=== PATIENT | female | born 1975 | race Caucasian/White ===

== ENCOUNTER → 2016-10-05 | Outpatient (CLI) | payer BC ==
--- NOTE | 2016-10-05 08:36 | MM ---
Reason for exam: clinical finding. Last mammogram was performed 10 months ago. History: Took hormonal contraceptives for 9 months. Indicated problem(s): pain in the left breast. Physical Findings: Nurse did not find any significant physical abnormalities on exam. MG Diagnostic Mammo LT w CAD XCCL, MLO, CC, ML, and spot compression MLO view(s) were taken of the left breast. Prior study comparison: November 30, 2015, bilateral MG 3d screening mammo w/cad. June 12, 2011, bilateral digital screening mammo w/CAD. The breast tissue is heterogeneously dense. This may lower the sensitivity of mammography. There is no discrete abnormality including area of concern. These results were verbally communicated with the patient and result sheet given to the patient on 10/05/16. ASSESSMENT: Benign, BI-RAD 2 RECOMMENDATION: Return to routine screening mammogram schedule for both breasts. Back on schedule. Manage patient on a clinical basis.
== END | disposition home or self-care (01) ==
LOC: RADMAMWWP 07:07
PROVIDERS: ATTEND Internal Medicine
DX: N63 Unspecified lump in breast (principal)

== ENCOUNTER → 2017-02-28 | Outpatient (CLI) | payer BC ==
--- NOTE | 2017-02-28 11:16 | MM ---
Reason for exam: screening (asymptomatic). Last mammogram was performed 5 months ago. History: Took hormonal contraceptives for 9 months. Physical Findings: A clinical breast exam by your physician is recommended on an annual basis and results should be correlated with mammographic findings. MG Screening Mammo w CAD Bilateral CC and MLO view(s) were taken. Prior study comparison: October 05, 2016, left breast MG diagnostic mammo LT w CAD. November 30, 2015, bilateral MG 3d screening mammo w/cad. June 12, 2011, bilateral digital screening mammo w/CAD. The breast tissue is extremely dense which could obscure a lesion on mammography. There is no discrete abnormality. ASSESSMENT: Negative, BI-RAD 1 RECOMMENDATION: Routine screening mammogram of both breasts in 1 year.
== END | disposition home or self-care (01) ==
LOC: RADMAMWWP 08:22
PROVIDERS: ATTEND Obstetrics & Gynecology
DX: Z12.31 Encounter for screening mammogram for malignant neoplasm of breast (principal)

== ENCOUNTER → 2017-11-05 | Outpatient (CLI) | payer BC ==
--- NOTE | 2017-11-06 08:15 | USB ---
Reason for exam: additional evaluation requested from abnormal screening. History: Took hormonal contraceptives for 9 months. Physical Findings: Nurse Summary: Patient complains of left breast pain x 1 year intermittently (nurse chad) US Breast LT Left breast ultrasound includes all four quadrants, the retroareolar region and axilla. Finding demonstrates a 0.5 x 0.4 x 0.3cm oval, cystic lesion at 4 o'clock and a 1.8 x 1.9 x 0.6cm oval, cystic lesion at the posterior nipple. These results were verbally communicated with the patient and result sheet given to the patient on 11/05/17. ASSESSMENT: Benign, BI-RAD 2 RECOMMENDATION: Return to routine screening mammogram schedule for both breasts. Back on schedule for February 2018. Manage on a clinical basis with regard to pain.
== END | disposition home or self-care (01) ==
LOC: RADUSWWP 14:13
PROVIDERS: ATTEND Obstetrics & Gynecology
DX: N64.4 Mastodynia (principal)

== ENCOUNTER → 2018-05-29 | Outpatient (CLI) | payer BC ==
--- NOTE | 2018-05-30 10:21 | MM ---
Reason for exam: screening (asymptomatic). Last mammogram was performed 1 year and 3 months ago. History: Took hormonal contraceptives for 9 months. Physical Findings: A clinical breast exam by your physician is recommended on an annual basis and results should be correlated with mammographic findings. MG Screening Mammo w CAD Bilateral CC and MLO view(s) were taken. Prior study comparison: February 28, 2017, bilateral MG screening mammo w CAD. October 05, 2016, left breast MG diagnostic mammo LT w CAD. The breast tissue is heterogeneously dense. This may lower the sensitivity of mammography. There is no discrete abnormality. ASSESSMENT: Negative, BI-RAD 1 RECOMMENDATION: Routine screening mammogram of both breasts in 1 year.
== END | disposition home or self-care (01) ==
LOC: RADMAMWWP 09:26
PROVIDERS: ATTEND Obstetrics & Gynecology
DX: Z12.31 Encounter for screening mammogram for malignant neoplasm of breast (principal)
CPT/HCPCS: 77067

== ENCOUNTER → 2019-07-02 | Outpatient (CLI) | payer BC ==
--- NOTE | 2019-07-02 11:57 | MM ---
Reason for exam: screening (asymptomatic). Last mammogram was performed 1 year and 1 month ago. History: Took hormonal contraceptives for 9 months. Physical Findings: A clinical breast exam by your physician is recommended on an annual basis and results should be correlated with mammographic findings. MG 3D Screening Mammo W/Cad Bilateral CC and MLO view(s) were taken. Prior study comparison: May 29, 2018, bilateral MG screening mammo w CAD. February 28, 2017, bilateral MG screening mammo w CAD. The breast tissue is heterogeneously dense. This may lower the sensitivity of mammography. There is no discrete abnormality. ASSESSMENT: Negative, BI-RAD 1 RECOMMENDATION: Routine screening mammogram of both breasts in 1 year.
== END | disposition home or self-care (01) ==
LOC: RADMAMWWP 08:22
PROVIDERS: ATTEND Obstetrics & Gynecology
DX: Z12.31 Encounter for screening mammogram for malignant neoplasm of breast (principal)
CPT/HCPCS: 77063; 77067

== ENCOUNTER → 2020-10-14 | Outpatient (CLI) | payer BC ==
--- NOTE | 2020-10-17 09:26 | MM ---
Reason for exam: screening (asymptomatic). Last mammogram was performed 1 year and 3 months ago. History: Took hormonal contraceptives for 9 months. Physical Findings: A clinical breast exam by your physician is recommended on an annual basis and results should be correlated with mammographic findings. MG 3D Screening Mammo W/Cad Bilateral CC and MLO view(s) were taken. Prior study comparison: July 02, 2019, bilateral MG 3d screening mammo w/cad. May 29, 2018, bilateral MG screening mammo w CAD. The breast tissue is heterogeneously dense. This may lower the sensitivity of mammography. There is no discrete abnormality. No significant changes when compared with prior studies. ASSESSMENT: Negative, BI-RAD 1 RECOMMENDATION: Routine screening mammogram of both breasts in 1 year.
== END | disposition home or self-care (01) ==
LOC: RADMAMWWP 08:21
PROVIDERS: ATTEND Obstetrics & Gynecology
DX: Z12.31 Encounter for screening mammogram for malignant neoplasm of breast (principal)
CPT/HCPCS: 77063; 77067

== ENCOUNTER → 2021-03-31 | Outpatient (CLI) | payer BC ==
[2021-03-31 11:36] VITALS: BP 139/87; PULSE 78; RESP 14; TEMP 98.2
--- NOTE | 2021-03-31 11:59 | P.GSHP ---
History of Present Illness H&P Date: 03/31/21 Chief Complaint: nipple discharge Tammy is a 45 year old white female seen in consultation for Dr. Egan regarding left nipple discharge. She states this has been for about 8 weeks. It only occurs if it is expressed. She had a bilateral screening mammogram on 120 221 which was benign BIRADS 1. She does not complain of any new lumps masses or nodules of concern in either breast. She has no history of any recent trauma or infection in the breast. The discharge is brown in color. It is never been bright red. It seems to come from one isolated duct. Her periods are regular. The discharge is not related to her menstrual cycle. caffeine: one drink/day nicotine: none chocolate: occasional; she notices that if she eats too much that she has fullness and discomfort in her breast Family history: grandfather maternal: colon cancer Hormonal history: Menarche: 12 , breast fed: yes, age at first : 22 Periods are regular, last menstrual period was start any time Hormones: Negative control pills: less than a year as a teenager Surgical history: 5 hernia surgeries Plastic surgery on her nose Medical history: Negative Social history: Nicotine: Negative Alcohol: Rare Drugs: Negative - Constitutional Constitutional: Denies chills, Denies fever - EENT Eyes: denies blurred vision, denies pain Ears: deny: decreased hearing, tinnitus Ears, nose, mouth and throat: Denies headache, Denies sore throat - Breasts Breasts: bilateral: as per HPI - Cardiovascular Cardiovascular: Denies chest pain, Denies shortness of breath - Respiratory Respiratory: Denies cough, Denies 7 - Gastrointestinal Gastrointestinal: Denies abdominal pain, Denies diarrhea, Denies nausea, Denies vomiting - Genitourinary (Female) Genitourinary: Denies dysuria, Denies hematuria - Menstruation Menstruation: Reports as per HPI, Reports period normal - Musculoskeletal Musculoskeletal: Denies myalgias - Integumentary Integumentary: Denies pruritus, Denies rash - Neurological Neurological: Denies numbness, Denies weakness - Psychiatric Psychiatric: Denies anxiety, Denies depression - Endocrine Endocrine: Denies fatigue, Denies weight change - Hematologic/Lymphatic Comment: none - Allergic/Immunologic Allergic/Immunologic: Reports as per HPI Past Medical History Past Medical History: No Reported History History of Any Multi-Drug Resistant Organisms: None Reported Past Surgical History: Hernia Repair Additional Past Surgical History / Comment(s): hernia repair x5; broken nose at age 9 with reconstruction surgery; Past Anesthesia/Blood Transfusion Reactions: No Reported Reaction Past Psychological History: Anxiety Smoking Status: Never smoker Past Alcohol Use History: Rare Past Drug Use History: None Reported Medications and Allergies Home Medications Medication Instructions Recorded Confirmed Type Calcium/Magnesium/Zinc 1 each PO HS 03/31/21 03/31/21 History [Lvviyjb-Otsmexqwe-Bmxn Tablet] Multivitamin [Multivitamins Adult 1 each PO QAM 03/31/21 03/31/21 History Gummies] Psyllium Husk (with Sugar) 0 gm PO DAILY PRN 03/31/21 03/31/21 History [Metamucil Powder] Allergies Allergy/AdvReac Type Severity Reaction Status Date / Time No Known Allergies Allergy Unverified 03/31/21 11:26 Surgical - Exam Vital Signs Temp Pulse Resp BP Pulse Ox 98.2 F 78 14 139/87 98 03/31/21 11:28 03/31/21 11:28 03/31/21 11:28 03/31/21 11:28 03/31/21 11:28 BMI 28.3 - General well developed, well nourished, no distress - Eyes normal ocular movement - ENT no hearing loss, no congestion - Neck no masses, trachea midline - Respiratory normal respiratory effort, clear to auscultation - Cardiovascular Rhythm: regular Heart Sounds: normal: S1, S2 - Abdomen Abdomen: soft, non tender, no guarding, no rigid, no rebound - Integumentary normal turgor - Neurologic no disoriented, no combative - Musculoskeletal normal gait - Psychiatric oriented to time, oriented to person, oriented to place, speech is normal, memory intact breast exam: BRA: 38B inspection: Bilateral grade 2 ptosis Palpation: Right breast: Multi-positional exam fibrocystic changes no dominant masses or nodules of concern Right axilla: No adenopathy of concern Left breast: Multi-positional exam fibrocystic changes, no dominant masses or nodules of concern nipple discharge noted nipple area seems to be isolated to one duct; guaiac study was done and this was positive Left axilla: No adenopathy of concern Results Bilateral mammogram results reviewed from Assessment and Plan Assessment: Impression: 1. Fibrocystic breast changes 2. Bloody nipple discharge left breast 3. Recent bilateral mammogram benign BIRADS 1 Plan: 1. Ultrasound left breast 2. Duct exploration left breast if ultrasound shows an abnormality would do ultrasound localization if not duct exploration based on bloody discharge Risk and benefits of the procedure discussed with the patient. She understands and wishes to proceed. Risk include but are not limited to bleeding, infection, reaction to the anesthetic. CC: Dr. Egan
== END | disposition home or self-care (01) ==
LOC: WWCWWP 10:56
PROVIDERS: ATTEND Surgery
DX: Z53.9 Procedure and treatment not carried out, unspecified reason (principal)

== ENCOUNTER → 2021-04-04 | Outpatient (CLI) | payer BC ==
--- NOTE | 2021-04-04 10:24 | USB ---
EXAMINATION TYPE: US breast complete LT DATE OF EXAM: 04/04/2021 COMPARISON: 10/14/2020 CLINICAL HISTORY: N64.52 BREAST DISCHARGE. Findings: All 4 quadrants and the retroareolar left breast and left axilla were scanned with ultrasound. 2 incidental simple cysts are present at 3:00. In the retroareolar left breast at 3:00, there is a dilated duct containing a 0.4 x 0.3 cm intraducta l mass and ultrasound-guided biopsy is recommended. IMPRESSION: Ultrasound-guided biopsy is recommended for the intraductal mass in the retroareolar left breast at 3 :00 within a dilated duct. BI-RADS 4, suspicious.
== END | disposition home or self-care (01) ==
LOC: RADUSWWP 09:34
PROVIDERS: ATTEND Surgery
DX: N63.42 Unspecified lump in left breast, subareolar (principal)

== ENCOUNTER → 2021-05-04 | Day surgery (SDC) | payer BC ==
[2021-05-04 09:52] VITALS: RESP 12
[2021-05-04 11:48] VITALS: BP 151/84; PULSE 86; TEMP 98.7
--- NOTE | 2021-05-04 12:48 | USB ---
EXAMINATION TYPE: US biopsy breast VAD LT DATE OF EXAM: 05/04/2021 CLINICAL HISTORY: 45-year-old female N63. lump/mass. TECHNIQUE: Ultrasound guided core biopsy of 3:00 subareolar left breast. COMPARISON: 04/04/2021 FINDINGS: The procedure of ultrasound guided core biopsy was explained to the patient. Benefits, alt ernatives, and risks were discussed. An informed consent was then obtained. The patient was placed in supine positioning for imaging and for the procedure. The overlying skin w as prepped and draped in usual sterile fashion. Lidocaine was used as anesthetic into the skin and s ubcutaneous tissue up to area of concern in the 3:00 subareolar left breast The 7 mm ovoid hypoechoic circumscribed nodule is redemonstrated in the 3:00 subareolar region. The p revious associated ductal distention has resolved. Intraductal papilloma is possible. This is targete d for biopsy. Under ultrasound guidance, a 13-gauge vacuum-assisted mammotome Elite biopsy gun was used to obtain 3 core samples. Following this, a wing clip was left in lesion. The patient tolerated the procedure well. There was bleeding following the biopsy and prolonged pressure was applied by nursing. Hemostasis was successfully obtained. The patient will return for postbiopsy mammogram at a later date. The patient was kept in the radiology department for short stay after the procedure and then discharg ed home in stable condition. IMPRESSION: Successful, uncomplicated ultrasound guided core biopsy of 7 mm small oval mass 3:00 subareolar left breast previously noted to be located within a duct, possible intraductal papilloma. Note that the pa tient will return at a later date for postbiopsy mammogram. Full pathology results to follow.
== END ==
LOC: RADUSWWP 09:27
PROVIDERS: ATTEND Surgery
DX: N63.25 Unspecified lump in the left breast, overlapping quadrants (principal)
CPT/HCPCS: 19083; A4648; J2001

== ENCOUNTER → 2021-05-05 | Outpatient (CLI) | payer BC ==
--- NOTE | 2021-05-08 08:05 | MM ---
Reason for exam: additional evaluation requested from abnormal screening. Last mammogram was performed 7 months ago. History: Took hormonal contraceptives for 9 months. MG Diagnostic Mammo LT Wo CAD CC and LM view(s) were taken of the left breast. Prior study comparison: April 04, 2021, left breast US breast LT. October 14, 2020, bilateral MG 3d screening mammo w/cad. July 02, 2019, bilateral MG 3d screening mammo w/cad. The breast tissue is heterogeneously dense. This may lower the sensitivity of mammography. No significant hematoma. Wing clip in the subareolar region. Patient returned for post biopsy mammogram a day later due to initial bleeding. ASSESSMENT: Post procedure mammogram for marker placement RECOMMENDATION: Surgical consultation of the left breast.
== END | disposition home or self-care (01) ==
LOC: RADMAMWWP 07:56
PROVIDERS: ATTEND Surgery
DX: R92.8 Other abnormal and inconclusive findings on diagnostic imaging of breast (principal)
CPT/HCPCS: 77065

== ENCOUNTER → 2021-06-01 | Outpatient (CLI) | payer BC ==
--- NOTE | 2021-06-01 13:25 | P.PN ---
Progress Note - Text Progress Note Date: 06/01/21 Tammy [place] called [place] [id number]. Pathology revealed an intraductal papilloma. Additionally this was reviewed with Dr. Fields in the area of concern was identified. It is felt that this is the reason for her bloody nipple discharge. She is going to have needle localization and duct exploration/excision performed. However she recently was diagnosed with Covid and therefore the surgery was delayed for 7 weeks from the time of her diagnosis. She understands this will be seen in late June in the surgery will be in July. She was not vaccinated.
== END | disposition home or self-care (01) ==
LOC: WWCWWP 13:36
PROVIDERS: ATTEND Surgery
DX: Z53.9 Procedure and treatment not carried out, unspecified reason (principal)

== ENCOUNTER → 2022-01-29 | Outpatient (CLI) | payer BC ==
--- NOTE | 2022-01-29 09:20 | MM ---
Reason for exam: additional evaluation requested from prior study. Last mammogram was performed 9 months ago. History: Patient has history of high-risk lesion on a previous biopsy at age 45. High risk US biopsy breast VAD LT of the left breast, May 04, 2021. Took hormonal contraceptives for 9 months. Physical Findings: A clinical breast exam by your physician is recommended on an annual basis and results should be correlated with mammographic findings. MG 3D Diag Mammo W/Cad USHA Bilateral CC and MLO view(s) were taken. Prior study comparison: May 05, 2021, left breast MG diagnostic mammo LT wo CAD. October 14, 2020, bilateral MG 3d screening mammo w/cad. The breast tissue is heterogeneously dense. This may lower the sensitivity of mammography. Previous mammotome biopsy in the left breast. There is no discrete abnormality. Results were given to the patient verbally at the time of the exam. ASSESSMENT: Benign, BI-RAD 2 RECOMMENDATION: Routine screening mammogram of both breasts in 1 year.
--- NOTE | 2022-01-29 09:22 | USB ---
Reason for exam: follow-up at short interval from prior study. History: Patient has history of high-risk lesion on a previous biopsy at age 45. High risk US biopsy breast VAD LT of the left breast, May 04, 2021. Took hormonal contraceptives for 9 months. Physical Findings: A clinical breast exam by your physician is recommended on an annual basis and results should be correlated with mammographic findings. US Breast Limited LT Left limited breast ultrasound including focal area of concern, retroareolar and axilla demonstrates a 0.8 x 0.5 x 0.8cm oval, cystic, mixed lesion at 3 o'clock, 3cm from nipple, benign thin walled cyst, stable. Results were given to the patient verbally at the time of the exam. ASSESSMENT: Benign, BI-RAD 2 RECOMMENDATION: Routine screening mammogram of both breasts in 1 year.
== END | disposition home or self-care (01) ==
LOC: RADMAMWWP 07:52
PROVIDERS: ATTEND Surgery
DX: D48.62 Neoplasm of uncertain behavior of left breast (principal)
CPT/HCPCS: 77062; 77066

== ENCOUNTER → 2023-03-05 | Outpatient (CLI) | payer BC ==
--- NOTE | 2023-03-06 08:56 | MM ---
Reason for Exam: Screening (asymptomatic). Last mammogram was performed 1 year(s) and 1 month(s) ago. Patient History: Menarche at age 12. First Full-Term at age 22. Patient has history of breast feeding. Hormonal Contraceptives for 9 months. 05/04/2021, High risk Core Biopsy on the left side. Last menstrual period: 02/12/2023 Risk Values: Tish 5 year model risk: 1.1%. NCI Lifetime model risk: 10.0%. Prior Study Comparison: 10/14/2020 Bilateral Screening Mammogram, [facility]. 05/05/2021 Left Diagnostic Mammogram, [facility]. 01/29/2022 Bilateral Diagnostic Mammogram, [facility]. Tissue Density: The breast tissue is heterogeneously dense. This may lower the sensitivity of mammography. Findings: Analyzed By CAD. There is no suspicious group of microcalcifications or new suspicious mass in either breast. Overall Assessment: Negative, BI-RAD 1 Management: Screening Mammogram of both breasts in 1 year. . Patient should continue monthly self-breast exams. A clinical breast exam by your physician is recommended on an annual basis. This exam should not preclude additional follow-up of suspicious palpable abnormalities. Note on Tish scores and lifetime risk: 1. A Tish score greater than 3% is considered moderate risk. If this is the case, consider specialist referral to assess eligibility for a risk reducing agent. 2. If overall lifetime risk for the development of breast cancer is 20% or higher, the patient may qualify for future screening with alternating mammogram and breast MRI. Electronically signed and approved by: Nestor Salas M.D. Radiologis
== END | disposition home or self-care (01) ==
LOC: RADMAMWWP 09:25
PROVIDERS: ATTEND Obstetrics & Gynecology
DX: Z12.31 Encounter for screening mammogram for malignant neoplasm of breast (principal)
CPT/HCPCS: 77063; 77067